=== PATIENT | male | born 1960 | race Caucasian/White ===

== ENCOUNTER 2022-06-29 04:42 | Day surgery (SDC) | payer OTHER ==
[2022-06-24 12:03] VITALS: BMI 29.9
[2022-06-29 09:26] VITALS: TEMP 97.5
[2022-06-29 10:05] VITALS: BP 111/78; PULSE 61; RESP 11
== END 2022-06-29 10:30 | disposition home or self-care (01) ==
LOC: JASU-ENDO 04:42 → MERGE 09:00 → JASU-ENDO 10:30
PROVIDERS: ATTEND Internal Medicine Gastroenterology
PROC: 0DBH8ZX Excision of Cecum, Via Natural or Artificial Opening Endoscopic, Diagnostic (ICD-10-PCS; 2022-06-29)
PROC: 0DBP8ZX Excision of Rectum, Via Natural or Artificial Opening Endoscopic, Diagnostic (ICD-10-PCS; 2022-06-29)
PROC: 0DBK8ZX Excision of Ascending Colon, Via Natural or Artificial Opening Endoscopic, Diagnostic (ICD-10-PCS; principal; 2022-06-29 09:00)
DX: Z12.11 Encounter for screening for malignant neoplasm of colon (principal); Z86.010 Personal history of colon polyps; D12.2 Benign neoplasm of ascending colon; D12.0 Benign neoplasm of cecum; K62.1 Rectal polyp
CPT/HCPCS: 88305-TC

== ENCOUNTER 2025-06-29 06:18 | Day surgery (SDC) | payer OTHER ==
[2025-06-18 09:38] VITALS: BMI 31.1
[2025-06-29 08:33] VITALS: TEMP 97
[2025-06-29 08:38] VITALS: RESP 16
[2025-06-29 09:04] VITALS: BP 110/70; PULSE 88
== END 2025-06-29 09:04 | disposition home or self-care (01) ==
LOC: JASU-ENDO 06:18
PROVIDERS: ATTEND Internal Medicine Gastroenterology
PROC: 0DJD8ZZ Inspection of Lower Intestinal Tract, Via Natural or Artificial Opening Endoscopic (ICD-10-PCS; principal; 2025-06-29 08:00)
DX: Z12.11 Encounter for screening for malignant neoplasm of colon (principal); K64.8 Other hemorrhoids; Z86.0100 Personal history of colon polyps, unspecified